=== PATIENT | female | born 1990 | race American Indian/Alaskan Native ===

== ENCOUNTER 2016-08-19 11:54 | Emergency (ER) | payer MEDICAID ==
[2016-08-19 13:25] VITALS: BP 116/74
--- NOTE | 2016-08-19 17:17 | Emergency Department Report ---
Entered by SARAHI CAAL, acting as scribe for EDE ABRAMS PA. ED General Adult HPI - General Chief complaint: Sore Throat Stated complaint: COUGHED UP BLOOD/SORE THROAT Time Seen by Provider: 08/19/16 15:20 Source: patient Mode of arrival: Ambulatory Limitations: No Limitations - History of Present Illness Initial comments: 25 year old female presents to the ED for evaluation of sore throat and cough for 2 days. Patient describes sore throat as constant and rates discomfort as a 8/10 in severity. States cough is productive with yellow mucous and she notes blood streaks present in mucous x 1 this morning. Patient also reports associated nasal congestion, post nasal drip, and headache. She has tried home remedies including hot tea and soup with no relief and has not taken any OTC or Rx medications. Denies dental pain, abdominal pain, N/V/D, chest pain, and shortness of breath. Onset/Timin -: days(s) Location: mouth (sore throat) Radiation: non-radiation Severity scale (0 -10): 8 Quality: constant Consistency: constant Improves with: none Worsens with: none Associated Symptoms: cough (productive with yellow mucous. Blood streaks present in mucous x 1 this morning.), headaches, malaise, other (Reports nasal congestion, post nasal drip. Denies toothache, drooling, abdomnal pain). denies : chest pain, fever/chills, nausea/vomiting, shortness of breath Treatments Prior to Arrival: heat therapy (hot tea and soup with no relief. No OTC or Rx medications since onset.) - Related Data Previous Rx's Medication Instructions Recorded Last Taken Type Cetirizine HCl [ZyrTEC] 10 mg PO QDAY #14 capsule 08/19/16 Unknown Rx Fluticasone [Flonase] 1 spray NS QDAY #1 bottle 08/19/16 Unknown Rx predniSONE [Deltasone] 20 mg PO QDAY #5 tab 08/19/16 Unknown Rx Allergies Allergy/AdvReac Type Severity Reaction Status Date / Time No Known Allergies Allergy Verified 08/19/16 13:22 ED Review of Systems Comment: All other systems reviewed and negative Constitutional: malaise. denies: chills, fever ENT: throat pain, congestion (nasal congestion, post nasal drip). denies: ear pain Respiratory: cough (productive with yellow mucous. Blood streaks present in mucous x 1 this morning.). denies: shortness of breath, SOB with exertion, SOB at rest, stridor, wheezing Cardiovascular: denies: chest pain, palpitations, edema, syncope Gastrointestinal: denies: abdominal pain, nausea, vomiting, diarrhea Musculoskeletal: denies: back pain, arthralgia Neurological: headache. denies: numbness, paresthesias, confusion, abnormal gait, vertigo ED Past Medical Hx - Past Medical History Previous Medical History?: No - Surgical History Past Surgical History?: No - Family History Family history: no significant - Social History Smoking Status: Current Every Day Smoker Substance Use Type: Alcohol - Medications Home Medications: Home Medications Medication Instructions Recorded Confirmed Last Taken Type Cetirizine HCl [ZyrTEC] 10 mg PO QDAY #14 capsule 08/19/16 Unknown Rx Fluticasone [Flonase] 1 spray NS QDAY #1 bottle 08/19/16 Unknown Rx predniSONE [Deltasone] 20 mg PO QDAY #5 tab 08/19/16 Unknown Rx ED Physical Exam - General Limitations: No Limitations General appearance: alert, in no apparent distress - Head Head exam: Present: atraumatic, normocephalic, other (right frontal sinus tenderness to palpation) - Eye Eye exam: Present: PERRL, EOMI. Absent: conjunctival injection, periorbital swelling, periorbital tenderness Pupils: Present: normal accommodation - ENT ENT exam: Present: normal orophraynx, mucous membranes moist, other (Bilateral nares are erythematous. Turbinates swollen with thick mucous.) - Expanded ENT Exam Expanded TM/Canal exam: Bulging: Right TM, Left TM, Effusion: Right TM, Left TM Mouth exam: Present: normal external inspection, tongue normal. Absent: drooling, tongue elevation Throat exam: Positive: normal inspection, other (uvula midline. Airway patent. ) . Negative: tonsillar erythema, tonsillomegaly, tonsillar exudate - Neck Neck exam: Present: normal inspection, full ROM. Absent: tenderness, meningismus, lymphadenopathy, thyromegaly, other (edematous) - Respiratory Respiratory exam: Present: normal lung sounds bilaterally. Absent: respiratory distress, wheezes, rales, rhonchi, chest wall tenderness - Cardiovascular Cardiovascular Exam: Present: regular rate, normal rhythm, normal heart sounds. Absent: systolic murmur, diastolic murmur, rubs, gallop - GI/Abdominal GI/Abdominal exam: Present: soft, normal bowel sounds. Absent: distended, tenderness, guarding, rebound - Extremities Exam Extremities exam: Present: normal inspection, full ROM, normal capillary refill (less than 2 seconds. 2+ radial pulses bilaterally. 2+ dorsalis pedis pulses bilaterally.). Absent: other (no clubbing, cyanosis or edema) - Neurological Exam Neurological exam: Present: alert, oriented X3, normal gait. Absent: motor sensory deficit - Psychiatric Psychiatric exam: Present: normal affect, normal mood - Skin Skin exam: Present: warm, dry, intact. Absent: rash, cyanosis ED Course Vital Signs 08/19/16 13:24 Temperature 99.0 F Pulse Rate 86 Respiratory 17 Rate Blood Pressure 116/74 O2 Sat by Pulse 100 Oximetry ED Medical Decision Making - Medical Decision Making ED course: I discussed the patient if she has sinus inflammation which is more viral in nature. Patient has been having her symptoms for 2 days. I discussed diagnosis and treatment plan and she voiced understanding. Discharged home on prednisone, Flonase and Zofran. ED Disposition Clinical Impression: Acute inflammation of sinus Qualifiers: Sinusitis location: frontal Recurrence: not specified as recurrent Qualified Code(s): J01.10 - Acute frontal sinusitis, unspecified Headache Qualifiers: Headache type: unspecified Headache chronicity pattern: acute headache Intractability: not intractable Qualified Code(s): R51 - Headache Disposition: DISCHARGED TO HOME OR SELFCARE Is pt being admited?: No Does the pt Need Aspirin: No Condition: Stable Instructions: Sinusitis (ED), Acute Headache (ED) Additional Instructions: Please use saline nasal spray to flush nostrils. Prescriptions: Cetirizine HCl [ZyrTEC] 10 mg PO QDAY #14 capsule Fluticasone [Flonase] 1 spray NS QDAY #1 bottle predniSONE [Deltasone] 20 mg PO QDAY #5 tab Referrals: PRIMARY CARE, [Primary Care Provider] - 3-5 Days Forms: Work/School Release Form(ED) This documentation as recorded by the [facility] [place] REBEKAH,accurately reflects the service I personally performed and the decisions made by ,EDE ABRAMS PA.
== END 2016-08-19 17:25 | disposition home or self-care (01) ==
LOC: ED 11:54
DX: J01.10 Acute frontal sinusitis, unspecified (principal); R51 Headache; F17.200 Nicotine dependence, unspecified, uncomplicated
CPT/HCPCS: 99282